=== PATIENT | female | born 1985 | race Caucasian/White ===

== ENCOUNTER 2017-02-02 04:15 | Emergency (ER) | payer MEDICAID ==
[2017-02-02 04:25] VITALS: BP 137/86
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
== END 2017-02-02 05:45 | disposition left against medical advice (07) ==
LOC: CC.ED 04:15
DX: O9A.212 Injury, poisoning and certain other consequences of external causes complicating pregnancy, second trimester (principal); S70.11XA Contusion of right thigh, initial encounter; O99.89 Other specified diseases and conditions complicating pregnancy, childbirth and the puerperium; R10.9 Unspecified abdominal pain; Z88.5 Allergy status to narcotic agent; Z79.899 Other long term (current) drug therapy; Z3A.18 18 weeks gestation of pregnancy; Y04.0XXA Assault by unarmed brawl or fight, initial encounter
CPT/HCPCS: 99283